=== PATIENT | male | born 1995 | race Hispanic/Latino ===

== ENCOUNTER 2023-09-02 09:02 | Emergency (ER) | payer SELFPAY ==
[2023-09-02] MEDS ORDERED: Lidocaine 1% w/Epinephrine 1:200K 30 ML VIAL ONE (09:50)
[2023-09-02] MEDS ORDERED: Acetaminophen/Codeine 30-300mg Tablet ONE (12:09)
== END 2023-09-02 12:14 | disposition home or self-care (01) ==
LOC: CSHERS 09:02
DX: L05.01 Pilonidal cyst with abscess (principal)
CPT/HCPCS: 10080